=== PATIENT | female | born 1960 | race Caucasian/White ===

== ENCOUNTER → 2020-09-10 | Outpatient (CLI) | payer BC ==
[~2020-09-10] MED LIST: ASPIRIN EC81 MG PO; ATORVASTATIN CA20 MG PO; BRILINTA 90 MG90 MG PO; CARAFATE1 GM PO; CARVEDILOL3.125 MG PO; MECLIZINE HCL25 MG PO; NITROGLYCERIN0.4 MG SL; PROTONIX20 MG PO; PROTONIX40 MG PO; SINGULAIR10 MG PO; SYNTHROID50 MCG PO; SYNTHROID75 MCG PO; TOPROL XL25 MG PO; VITAMIN D325 MCG PO
[2020-09-10 07:57] LABS: BUN/CREATININE RATIO 9 (0-10)
== END ==
LOC: LAB 07:19
PROVIDERS: Internal Medicine Infectious Disease
DX: E78.5 Hyperlipidemia, unspecified (principal); R94.5 Abnormal results of liver function studies
CPT/HCPCS: 36415; 80053; 80061

== ENCOUNTER 2020-09-29 18:40 | Emergency (ER) | payer BC | END 2020-09-29 20:39 | disposition left against medical advice (07) | LOC: ER1 18:40 | DX: M54.9 Dorsalgia, unspecified (principal); Z53.21 Procedure and treatment not carried out due to patient leaving prior to being seen by health care provider ==

== ENCOUNTER → 2020-10-02 | Outpatient (CLI) | payer BC ==
[2020-10-02 08:14] LABS: HEMOGLOBIN 13.4 gm/dl (12.3-15.3); RED BLOOD COUNT 4.27 M/UL (4.00-5.10); WHITE BLOOD COUNT 5.5 K/UL (4.5-11.0)
== END ==
LOC: LAB 07:37
DX: Z00.00 Encounter for general adult medical examination without abnormal findings (principal)
CPT/HCPCS: 36415; 84436; 84443; 85025

== ENCOUNTER → 2021-02-17 | Outpatient (CLI) | payer BC | LOC: KOH-I 09:00 | DX: R63.4 Abnormal weight loss (principal); R91.1 Solitary pulmonary nodule | CPT/HCPCS: 71250 ==

== ENCOUNTER → 2021-12-18 | Outpatient (CLI) | payer BC | LOC: KOH-I 08:00 | DX: R91.1 Solitary pulmonary nodule (principal) | CPT/HCPCS: 71250 ==

== ENCOUNTER → 2022-02-03 | Day surgery (SDC) | payer BC | END | disposition home or self-care (01) | LOC: OR 07:21 | DX: Z12.11 Encounter for screening for malignant neoplasm of colon (principal); K64.1 Second degree hemorrhoids; K64.4 Residual hemorrhoidal skin tags; K29.50 Unspecified chronic gastritis without bleeding; K44.9 Diaphragmatic hernia without obstruction or gangrene; K31.9 Disease of stomach and duodenum, unspecified; K21.00 Gastro-esophageal reflux disease with esophagitis, without bleeding; I10 Essential (primary) hypertension; I25.10 Atherosclerotic heart disease of native coronary artery without angina pectoris; Z95.5 Presence of coronary angioplasty implant and graft; E03.9 Hypothyroidism, unspecified; Z88.0 Allergy status to penicillin; Z88.5 Allergy status to narcotic agent; Z79.82 Long term (current) use of aspirin; Z79.899 Other long term (current) drug therapy | CPT/HCPCS: 43239; G0121; J2704; J7040 ==

== ENCOUNTER → 2022-04-10 | Outpatient (CLI) | payer BC ==
[2022-04-10 08:40] LABS: HEMOGLOBIN 13.5 gm/dl (12.3-15.3); RED BLOOD COUNT 4.43 M/UL (4.00-5.10); WHITE BLOOD COUNT 4.6 K/UL (4.5-11.0)
== END ==
LOC: LAB 08:11
PROVIDERS: Emergency Medicine
DX: I25.10 Atherosclerotic heart disease of native coronary artery without angina pectoris (principal); E78.2 Mixed hyperlipidemia; R91.1 Solitary pulmonary nodule; E03.8 Other specified hypothyroidism
CPT/HCPCS: 36415; 80053; 84443; 85025